=== PATIENT | male | born 1980 ===

== ENCOUNTER 2023-12-31 08:13 | Outpatient (CLI) | payer OTHER | END 2023-12-31 08:19 | disposition home or self-care (01) | LOC: RAD 08:13 | DX: M48.00 Spinal stenosis, site unspecified (principal); M47.9 Spondylosis, unspecified; M54.6 Pain in thoracic spine ==

== ENCOUNTER 2025-02-09 08:30 | Outpatient (CLI) | payer OTHER | END 2025-02-09 08:37 | disposition home or self-care (01) | LOC: RAD 08:30 | DX: M54.2 Cervicalgia (principal); R07.2 Precordial pain ==